=== PATIENT | female | born 1975 | race Caucasian/White ===

== ENCOUNTER 2016-12-18 19:30 | Emergency (ER) | payer BC ==
--- NOTE | 2016-12-18 20:13 | RAD ---
INDICATION: Left fifth toe injury COMPARISON: None TECHNIQUE: AP, lateral, and oblique views were obtained. FINDINGS: There is a nondisplaced oblique fracture the proximal fossa the fifth toe. There are no other fractures. There is mild associated soft tissue swelling. IMPRESSION: FRACTURE FIFTH TOE.
[2016-12-18 20:14] VITALS: BP 105/73
--- NOTE | 2016-12-18 20:26 | UC ---
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 NO FOOT PAIN. NO ANKLE OR LATERAL LEG PAIN. PAIN WITH WEIGHT BEARING. NO PREVIOUS TOE FRACTURES. - History of Current Complaint Chief Complaint: UCLowerExtremity Stated Complaint: TOE INJURY Time Seen by Provider: 12/18/16 19:30 Hx Obtained From: Patient, Family/Sports Internship Hx Last Menstrual Period: breast feeding Onset/Duration: Sudden Onset, Lasting Hours, Still Present Severity Initially: Severe Severity Currently: Mild Aggravating Factor(s): Standing, Ambulation Alleviating Factor(s): Rest, Elevation, Ice Able to Bear Weight: No - PAIN IN LEFT 5TH TOE - Risk Factors Gout Risk Factors: Negative DVT Risk Factors: Negative Septic Arthritis Risk Factor: Negative - Allergies/Home Medications Allergies/Adverse Reactions: Allergies Allergy/AdvReac Type Severity Reaction Status Date / Time Penicillins Allergy Rash Verified 12/18/16 19:39 Home Medications: Home Medications NK [No Home Medications Reported] 12/18/16 [History Confirmed 12/18/16] PMH/Surg Hx/FS Hx/Imm Hx Previously Healthy: Yes - Surgical History Surgical History: None - Family History Known Family History: Negative: Blood Disorder - Social History Lives: With Family Alcohol Use: Rare Substance Use Type: None Smoking Status (MU): Never Smoked Tobacco Review of Systems Constitutional: Negative Skin: Bruising - LEFT FIFTH TOE Eyes: Negative ENT: Negative Respiratory: Negative Cardiovascular: Negative Gastrointestinal: Negative Genitourinary: Negative Motor: Negative Neurovascular: Negative Musculoskeletal: Arthralgia - LEFT FIFTH TOE, Myalgia Neurological: Negative Psychological: Negative All Other Systems Reviewed And Are Negative: Yes Physical Exam Triage Information Reviewed: Yes Appearance: Well-Appearing, Well-Nourished, Pain Distress - MODERATE Vital Signs: Initial Vital Signs Temp 97.6 F 12/18/16 19:34 Pulse 66 12/18/16 19:34 Resp 20 12/18/16 19:34 BP 105/73 12/18/16 19:34 Pulse Ox 98 12/18/16 19:34 Vital Signs Reviewed: Yes Eye Exam: Normal ENT Exam: Normal ENT: Positive: Normal ENT inspection Dental Exam: Normal Neck exam: Normal Neck: Positive: Supple, Nontender Respiratory Exam: Normal Respiratory: Positive: Chest non-tender, Lungs clear, Normal breath sounds, No respiratory distress, No accessory muscle use Cardiovascular Exam: Normal Cardiovascular: Positive: RRR, No Murmur, Pulses Normal, Brisk Capillary Refill Abdominal Exam: Normal Musculoskeletal: Positive: Strength Intact, ROM Intact, Edema @ - LEFT FIFTH TOE , Other: - TENDERNESS LEFT FIFTH TOE Neurological Exam: Normal Psychological Exam: Normal Skin Exam: Normal Lower Extremity Course/Dx - Differential Dx/Diagnosis Differential Diagnosis/HQI/PQRI: Sprain, Strain Provider Diagnoses: CLOSED FRACTUIRE OF LEFT FIFTH TOE Discharge - Discharge Plan Condition: Stable Disposition: HOME Patient Education Materials: Crutch Instructions (ED), Toe Fracture (ED), RICE Therapy (ED) Referrals: [facility] [place] [facility] [Outside] Arik Nieves MD [Medical Doctor] - 1 Week No Primary Care Phys,NOPCP [Primary Care Provider] -
== END 2016-12-18 20:45 | disposition home or self-care (01) ==
LOC: UCEAST 19:30
DX: S92.515A Nondisplaced fracture of proximal phalanx of left lesser toe(s), initial encounter for closed fracture (principal); W22.8XXA Striking against or struck by other objects, initial encounter; Y93.9 Activity, unspecified; Y92.9 Unspecified place or not applicable; Z88.0 Allergy status to penicillin
CPT/HCPCS: 99201; G0463